=== PATIENT | female | born 1965 | race Two or more races ===

== ENCOUNTER 2024-03-31 08:22 | Outpatient (CLI) | payer OTHER ==
[~2024-03-31 08:22] MED LIST: IBUPROFEN800 MG PO; ORPH100T PO
== END 2024-03-31 08:26 | disposition home or self-care (01) ==
LOC: NUCLEAR 08:22
PROVIDERS: ATTEND Internal Medicine Gastroenterology
DX: K82.9 Disease of gallbladder, unspecified (principal)